=== PATIENT | male | born 1975 | race Caucasian/White ===

== ENCOUNTER 2023-01-22 16:42 | Emergency (ER) | payer BC ==
[2023-01-22 16:50] VITALS: RESP 20; BMI 26.4
[2023-01-22 18:30] VITALS: BP 152/81; PULSE 82; TEMP 98.1
== END 2023-01-22 18:36 | disposition home or self-care (01) ==
LOC: JER 16:42
DX: S80.211A Abrasion, right knee, initial encounter (principal); W19.XXXA Unspecified fall, initial encounter
CPT/HCPCS: 99282-25

== ENCOUNTER 2024-09-29 11:16 | Inpatient (IN) | payer BC ==
[2024-09-29 11:59] VITALS: BMI 26.1
[2024-09-29] MEDS ORDERED: LORazepam 1 MG TABLET PO PRN (12:26)
[2024-09-29] MEDS ORDERED: POLYETHYLENE GLYCOL (HEALTHYLAX) 3350 17 GM PACKET PO PRN (12:31)
[2024-09-29] MEDS ORDERED: NICOTINE POLACRILEX 2 MG GUM BUC PRN (12:31)
[2024-09-29] MEDS ORDERED: IBUPROFEN 400 MG TABLET (FP) PO PRN (12:31)
[2024-09-29] MEDS ORDERED: MAG HYDROX/AL HYDROX/SIMETH 30 ML UNIT-DOSE CUP PO PRN (12:31)
[2024-09-29] MEDS ORDERED: MAGNESIUM HYDROX 2400MG/30ML ORAL SUSPENSION 30 ML CUP PO PRN (12:31)
[2024-09-29] MEDS ORDERED: ONDANSETRON *ODT* 4 MG TABLET SL PRN (12:31)
[2024-09-29] MEDS ORDERED: BENZOCAINE/MENTHOL (CHLORASEPTIC ) LOZENGE MM PRN (12:31)
[2024-09-29] MEDS ORDERED: DICYCLOMINE HCL 10 MG CAPSULE PO PRN (12:31)
[2024-09-29] MEDS ORDERED: NALOXONE (NARCAN) HCL 4 MG/0.1 ML SPRAY NS PRN (12:31)
[2024-09-29] MEDS ORDERED: NICOTINE POLACRILEX 2 MG LOZENGE BC PRN (12:31)
[2024-09-29] MEDS ORDERED: LOPERAMIDE HCL 2 MG CAPSULE PO PRN (12:31)
[2024-09-29] MEDS ORDERED: guaiFENesin 600 MG TABLET.ER (FP) PO PRN (12:31)
[2024-09-29] MEDS ORDERED: BENZONATATE 200 MG CAPSULE PO PRN (12:31)
[2024-09-29] MEDS ORDERED: BISMUTH SUBSALICYLATE 524 MG/30 ML PO PRN (12:31)
[2024-09-29] MEDS ORDERED: IBUPROFEN 600 MG TABLET (FP) PO PRN (12:31)
[2024-09-29] MEDS ORDERED: LACTULOSE 20 GM/30 ML UDC (FOR ORAL USE ONLY) PO PRN (14:54)
[2024-09-29] MEDS: LORazepam 2 MG TABLET PO SCH (17:18)
[2024-09-29] MEDS: CEPHALEXIN MONOHYDRATE 500 MG CAPSULE (UD) PO SCH (17:21)
[2024-09-29] MEDS: ATORVASTATIN CA 80 MG TABLET (FP) PO SCH (22:07)
[2024-09-29] MEDS: THIAMINE 100 MG TABLET PO SCH (22:08)
[2024-09-29] MEDS: APIXABAN 5 MG TABLET PO SCH (22:08)
[2024-09-29] MEDS: MELATONIN 5 MG TABLETS PO SCH (22:08)
[2024-09-29] MEDS: CARVEDILOL 6.25 MG TABLET (FP) PO SCH (22:08)
[2024-09-29] MEDS: amLODIPine BESYLATE 10 MG TABLET (FP) PO ONE (23:23)
[2024-09-30] MEDS: FUROSEMIDE 40 MG TABLET (FP) PO SCH (06:02)
[2024-09-30] MEDS: MAGNESIUM OXIDE 400 MG TABLET (FP) PO SCH (10:43)
[2024-09-30] MEDS: PRENATAL VITAMINS W/ FOLIC ACID TABLET (FP) PO SCH (10:43)
[2024-09-30] MEDS: NIFEdipine E.R. 30 MG TABLET PO SCH (10:43)
[2024-09-30] MEDS: FOLIC ACID 1 MG TABLET (FP) PO SCH (10:43)
[2024-09-30] MEDS: METHOCARBAMOL 500 MG TABLET PO PRN (10:50)
[2024-09-30] MEDS: PANTOPRAZOLE 40 MG TABLET PO SCH (11:20)
[2024-09-30] MEDS: LIDOCAINE 4% PATCH TP SCH (13:42)
[2024-09-30] MEDS: LIDOCAINE PATCH REMOVAL MC SCH (22:34)
[2024-10-01] MEDS: LORazepam 1 MG TABLET PO SCH (06:00)
[2024-10-01] MEDS: PANTOPRAZOLE 40 MG TABLET PO SCH (10:37)
[2024-10-01] MEDS: LORazepam 0.5 MG TABLET PO SCH (17:25)
[2024-10-02] MEDS ORDERED: LORazepam 0.5 MG TABLET PO PRN
[2024-10-02] MEDS: LORazepam 0.5 MG TABLET PO SCH (05:57)
[2024-10-02 11:53] LABS: HEMATOCRIT 25.9 % (40.1-51.0); HEMOGLOBIN 7.7 g/dL (13.7-17.5); MCHC 29.7 g/dl (32.3-36.5); MEAN CELL VOLUME 87.2 fl (79.0-92.2); MEAN PLT VOLUME 11.2 fl (9.4-12.4); PLATELET COUNT 459 x10^3/uL (163-337); RDW 21.4 % (12.1-15.9)
[2024-10-02 11:54] LABS: POTASSIUM 3.7 mmol/L (3.5-5.1)
[2024-10-02 12:00] LABS: ALBUMIN 1.9 g/dl (3.4-5.0)
[2024-10-02 12:02] LABS: CALCIUM 7.9 mg/dL (8.5-10.1)
[2024-10-02 12:03] LABS: CREATININE 0.9 mg/dL (0.55-1.3)
[2024-10-02 12:04] LABS: BILIRUBIN,TOTAL 1.2 mg/dL (0.2-1); TOT PROT 5.7 g/dl (6.4-8.2)
[2024-10-03] MEDS: LORazepam 0.5 MG TABLET PO ONE (05:57)
[2024-10-03 17:07] VITALS: RESP 16
[2024-10-04 09:13] VITALS: BP 130/84; PULSE 78; TEMP 96.8
== END 2024-10-04 09:26 | disposition home or self-care (01) | DRG 775 ==
LOC: YASAS 11:16 → Y6N 13:20
PROVIDERS: ADMIT Allergy & Immunology; ATTEND Allergy & Immunology
PROC: HZ2ZZZZ Detoxification Services for Substance Abuse Treatment (ICD-10-PCS; principal; 2024-09-29)
DX: F10.230 Alcohol dependence with withdrawal, uncomplicated (principal); F10.282 Alcohol dependence with alcohol-induced sleep disorder; F10.24 Alcohol dependence with alcohol-induced mood disorder; E78.2 Mixed hyperlipidemia; I11.0 Hypertensive heart disease with heart failure; I50.9 Heart failure, unspecified; K70.30 Alcoholic cirrhosis of liver without ascites; Z86.718 Personal history of other venous thrombosis and embolism; Z79.01 Long term (current) use of anticoagulants; Z99.89 Dependence on other enabling machines and devices; Z56.0 Unemployment, unspecified; Z59.00 Homelessness unspecified
CPT/HCPCS: 36415; 80053; 80305; 80307; 85027; 86593; 86780; 93005; 93010

== ENCOUNTER 2024-10-29 09:18 | Inpatient (IN) | payer BC, OTHER ==
[2024-10-29 09:48] VITALS: BP 136/96; PULSE 76; RESP 18; TEMP 97.6; BMI 25.0
[2024-10-29] MEDS ORDERED: MAG HYDROX/AL HYDROX/SIMETH 30 ML UNIT-DOSE CUP PO PRN (10:35)
[2024-10-29] MEDS ORDERED: BENZOCAINE/MENTHOL (CHLORASEPTIC ) LOZENGE MM PRN (10:35)
[2024-10-29] MEDS ORDERED: METHOCARBAMOL 500 MG TABLET PO PRN (10:35)
[2024-10-29] MEDS ORDERED: ACETAMINOPHEN 325 MG TABLET (FP) PO PRN (10:35)
[2024-10-29] MEDS ORDERED: MAGNESIUM HYDROX 2400MG/30ML ORAL SUSPENSION 30 ML CUP PO PRN (10:35)
[2024-10-29] MEDS ORDERED: IBUPROFEN 400 MG TABLET (FP) PO PRN (10:35)
[2024-10-29] MEDS ORDERED: POLYETHYLENE GLYCOL (HEALTHYLAX) 3350 17 GM PACKET PO PRN (10:35)
[2024-10-29] MEDS ORDERED: guaiFENesin 600 MG TABLET.ER (FP) PO PRN (10:35)
[2024-10-29] MEDS ORDERED: BISMUTH SUBSALICYLATE 262 MG/15 ML BTL PO PRN (10:35)
[2024-10-29] MEDS ORDERED: IBUPROFEN 600 MG TABLET (FP) PO PRN (10:35)
[2024-10-29] MEDS ORDERED: NALOXONE (NARCAN) HCL 4 MG/0.1 ML SPRAY NS PRN (10:35)
[2024-10-29] MEDS ORDERED: LORazepam 1 MG TABLET PO PRN (10:35)
[2024-10-29] MEDS ORDERED: BENZONATATE 200 MG CAPSULE PO PRN (10:35)
[2024-10-29] MEDS ORDERED: DICYCLOMINE HCL 10 MG CAPSULE PO PRN (10:35)
[2024-10-29] MEDS ORDERED: hydrOXYzine PAMOATE 25 MG CAPSULE (FP) PO PRN (10:35)
[2024-10-29] MEDS ORDERED: ONDANSETRON *ODT* 4 MG TABLET SL PRN (10:35)
[2024-10-29] MEDS ORDERED: LOPERAMIDE HCL 2 MG CAPSULE PO PRN (10:35)
[2024-10-29] MEDS ORDERED: LORazepam 2 MG TABLET PO SCH (17:00)
[2024-10-29] MEDS ORDERED: ATORVASTATIN CA 80 MG TABLET (FP) PO SCH (22:00)
[2024-10-29] MEDS ORDERED: THIAMINE 100 MG TABLET PO SCH (22:00)
[2024-10-29] MEDS ORDERED: CARVEDILOL 6.25 MG TABLET (FP) PO SCH (22:00)
[2024-10-29] MEDS ORDERED: MELATONIN 5 MG TABLETS PO SCH (22:00)
[2024-10-30] MEDS ORDERED: PRENATAL VITAMINS W/ FOLIC ACID TABLET (FP) PO SCH (10:00)
[2024-10-30] MEDS ORDERED: MAGNESIUM OXIDE 400 MG TABLET (FP) PO SCH (10:00)
[2024-10-30] MEDS ORDERED: NIFEdipine E.R. 30 MG TABLET PO SCH (10:00)
[2024-10-30] MEDS ORDERED: FUROSEMIDE 40 MG TABLET (FP) PO SCH (10:00)
[2024-10-30] MEDS ORDERED: PANTOPRAZOLE 40 MG TABLET PO SCH (10:00)
[2024-10-31] MEDS ORDERED: LORazepam 1 MG TABLET PO SCH (05:00)
[2024-11-01] MEDS ORDERED: LORazepam 0.5 MG TABLET PO PRN
[2024-11-01] MEDS ORDERED: LORazepam 0.5 MG TABLET PO SCH (05:00)
[2024-11-02] MEDS ORDERED: LORazepam 0.5 MG TABLET PO ONE (05:00)
== END 2024-10-29 12:05 | disposition home or self-care (01) | DRG 861 ==
LOC: YASAS 09:18 → Y6N 11:07
PROVIDERS: ADMIT Allergy & Immunology; ATTEND Allergy & Immunology
DX: Z53.29 Procedure and treatment not carried out because of patient's decision for other reasons (principal)
CPT/HCPCS: 36415; 80305; 80307; 93005; 93010